=== PATIENT | male | born 1995 | race Caucasian/White ===

== ENCOUNTER 2022-06-27 20:47 | Emergency (ER) | payer BC ==
[2022-06-27 20:53] VITALS: BP 142/86; PULSE 92; RESP 20; TEMP 97.9
[2022-06-27] MEDS ORDERED: KETOROLAC 15 MG/ML 1 ML VIAL IM STA (23:09)
[2022-06-27] MEDS ORDERED: LIDOCAINE 5% PATCH TOPICAL STA (23:09)
[2022-06-27] MEDS ORDERED: methocarbamoL 500 MG TAB PO STA (23:09)
--- NOTE | 2022-06-27 23:47 | XR ---
EXAMINATION TYPE: XR lumbar spine 2 or 3V DATE OF EXAM: 06/27/2022 CLINICAL HISTORY: Acute on chronic pain. TECHNIQUE: Frontal and lateral images of the lumbar spine are obtained. COMPARISON: None FINDINGS: There are 5 lumbar type vertebral bodies identified. The lumbar spine shows satisfactory alignment without evidence of acute fracture or dislocation. Vertebral body heights and disk space he ights are within normal limits. Tiny bony projection anterior inferior L5 vertebral level could refle ct limbus vertebra. The overlying soft tissue appears unremarkable. IMPRESSION: As above.
[2022-06-28] MEDS ORDERED: methylPREDNISolone SOD SUCCI 125 MG/2 ML VIAL IM ONE (00:04)
--- NOTE | 2022-06-28 00:04 | ED ---
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 States he is having pain in the lower back. Occasionally radiates into his right buttock. Also complains of some numbness along the lower aspect of his spine. Denies any urinary or bowel incontinence. Denies any saddle anesthesias. Denies any paralysis of his legs. Is able to ambulate, and states it hurts worse when laying down flat. Improves and standing up. Worse when bending forward. Is seeing a youth care specialist or [facility]. Does not see him until next week Which is why presents tonight for evaluation. States the pain got worse 2 or 3 days ago. No known provocative factor. Does not like to take medications for pain but has been using Tylenol and Motrin with minimal improvement. Presents for further evaluation at this time. No sensory deficits. No weakness. No new injury. - Related Data Previous Rx's Medication Instructions Recorded Lidocaine 5% Patch [Lidoderm 5% 1 patch TOPICAL DAILY PRN 14 Days 06/28/22 Patch] #14 patch methocarbamoL [Robaxin-750] 750 mg PO BID PRN 7 Days #14 tab 06/28/22 Allergies Allergy/AdvReac Type Severity Reaction Status Date / Time amoxicillin Allergy Unknown Verified 06/27/22 20:53 Childhood Penicillins Allergy Unknown Verified 06/27/22 20:53 Childhood Review of Systems ROS Statement: Those systems with pertinent positive or pertinent negative responses have been documented in the HPI. Review of Systems: CONST: Denies fever EYES: Denies blurry vision ENT: Denies nasal congestion C/V: Denies Chest pain RESP: Denies shortness of breath GI: Denies abdominal pain : Denies dysuria SKIN: Denies rash. MSK: Endorses spine pain NEURO: Denies headache ROS Other: All systems not noted in ROS Statement are negative. Past Medical History Additional Past Medical History / Comment(s): back pain History of Any Multi-Drug Resistant Organisms: None Reported Past Surgical History: Hernia Repair, Orthopedic Surgery Additional Past Surgical History / Comment(s): rt knee Past Psychological History: No Psychological Hx Reported Smoking Status: Never smoker Past Alcohol Use History: None Reported Past Drug Use History: None Reported General Exam - General Exam Comments Initial Comments: General: Appears in mild distress secondary to back pain. HEAD: Normal with no signs of head trauma. EYES: EOMI ENT: Hearing grossly intact RESPIRATORY: No respiratory distress C/V: Regular rate and rhythm. S1 and S2 auscultated, peripheral pulses 2+ and intact throughout. ABD: Nondistended EXT: Normal range of motion, no obvious deformity. Neurovascular intact throughout. No midline cervical or thoracic spine tenderness to palpation. L5 tenderness to palpation in the midline. States this is chronic. Pelvis stable. SKIN: No rashes or lesions observed on exposed skin. NEURO: Alert and oriented x 4. Cranial nerves II-XII intact. No focal sensory or strength deficits. Ambulates without difficulty. Negative saddle anesthesia Limitations: no limitations Course Vital Signs 06/27/22 20:49 Temperature 97.9 F Pulse Rate 92 Respiratory 20 Rate Blood Pressure 142/86 O2 Sat by Pulse 96 Oximetry Medical Decision Making - Medical Decision Making Was pt. sent in by a medical professional or institution (, PA, [employer], urgent care, hospital, or fpc...) When possible be specific @ -No Did you speak to anyone other than the patient for history (EMS, parent, family, police, friend...)? What history was obtained from this source @ -No Did you review nursing and triage notes (agree or disagree)? Why? @ -I reviewed and agree with nursing and triage notes Were old charts reviewed (outside hosp., previous admission, EMS record, old EKG, old radiological studies, urgent care reports/EKG's, fpc records)? Report findings @ -No old charts were reviewed Differential Diagnosis (chest pain, altered mental status, abdominal pain women, abdominal pain men, vaginal bleeding, weakness, fever, dyspnea, syncope, headache, dizziness, GI bleed, back pain, seizure, CVA, palpatations, mental health, musculoskeletal)? @ -Muscle strain, muscle strain, chronic back pain, cauda equina syndrome. This list is not all-inclusive. EKG interpreted by me (3pts min.). @ -None done X-rays interpreted by me (1pt min.). @ -Spine x-ray reveals no obvious acute injury. Does appear to have a bony projection near the L5 vertebral body which based on the patient's description is chronic for him. This is the source of his pain that he is being evaluated for. No prior imaging for comparison. CT interpreted by me (1pt min.). @ -None done U/S interpreted by me (1pt. min.). @ -None done What testing was considered but not performed or refused? (CT, X-rays, U/S, labs)? Why? @ -None What meds were considered but not given or refused? Why? @ -None Did you discuss the management of the patient with other professionals (professionals i.e. , PA, [employer], lab, RT, psych nurse, social service liaison, front office agent, teacher, commanding officer homicide squad, immigration case worker)? Give summary @ -No Was smoking cessation discussed for >3mins.? @ -No Was critical care preformed (if so, how long)? @ -No Were there social determinants of health that impacted care today? How? (Homelessness, low income, unemployed, alcoholism, drug addiction, transportation, low edu. Level, literacy, decrease access to med. care, senior care, rehab)? @ -No Was there de-escalation of care discussed even if they declined (Discuss DNR or withdrawal of care, Hospice)? DNR status @ -No What co-morbidities impacted this encounter? (DM, HTN, Smoking, COPD, CAD, Cancer, CVA, ARF, Chemo, Hep., AIDS, mental health diagnosis, sleep apnea, morbid obesity)? 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 Hospital course, mention meds given and route, prescriptions, significant lab abnormalities, going to OR and other pertinent info. @ -Based on the patient's presentation and physical exam I'm concerned for likely acute exacerbation of his chronic pain. No new trauma. No concern for cauda equina syndrome as he has no red flag symptoms. We will obtain a lumbar spine x-ray as well as symptomatic pretreated the patient with a lidocaine patch, muscle relaxer, steroid injection, Toradol injection. He was in agreement this plan. Vital signs within acceptable limits. X-ray shows the known chip deformity of the L5 vertebral body. No acute findings. Discussed results of the patient. He'll be discharged home with strict return precautions. He was in agreement this plan. Instructed to follow-up with his specialist next week. Educated him on the signs of cauda equina syndrome and urgency to return to emergency Department if this does occur. I will provide the patient with a prescription for lidocaine patch, Robaxin. I instructed the patient to follow up with their PCP in the next 1-3 days. I explained that the patient should return to the emergency department if they experience any worsening symptoms. Strict return precautions were discussed with the patient. The patient expressed understanding of these instructions. I answered all questions that the patient had. The patient was discharged home in good condition with their prescriptions and follow up information. Undiagnosed new problem with uncertain prognosis? @ -No Drug Therapy requiring intensive monitoring for toxicity (Heparin, Nitro, Insulin, Cardizem)? @ -No Were any procedures done? @ -No Diagnosis/symptom? @ -Lumbar pain, L5 vertebral body chip deformity Acute, or Chronic, or Acute on Chronic? @ -Acute on chronic chronic Uncomplicated (without systemic symptoms) or Complicated (systemic symptoms)? @ -Uncomplicated Side effects of treatment? @ -No Exacerbation, Progression, or Severe Exacerbation? @ -No Poses a threat to life or bodily function? How? (Chest pain, [place], [place], pneumonia, PE, COPD, DKA, ARF, appy, cholecystitis, CVA, Diverticulitis, Homicidal, Suicidal, threat to staff... and all critical care pts) @ -No Disposition Clinical Impression: Chronic lumbar pain Disposition: HOME SELF-CARE Condition: Good Instructions (If sedation given, give patient instructions): Acute Low Back Pain (ED) Prescriptions: Lidocaine 5% Patch [Lidoderm 5% Patch] 1 patch TOPICAL DAILY PRN 14 Days #14 patch PRN Reason: Pain methocarbamoL [Robaxin-750] 750 mg PO BID PRN 7 Days #14 tab PRN Reason: Pain Is patient prescribed a controlled substance at d/c from ED?: No Referrals: Katharine Cross MD [Primary Care Provider] - 1-2 days Time of Disposition: 00:01
[2022-06-28] MEDS ORDERED: DEXAMETHASONE SOD PHOSPHATE 10 MG/ML 1 ML VIAL IM STA (00:05)
== END 2022-06-28 00:16 | disposition home or self-care (01) ==
LOC: EC 20:47
DX: G89.29 Other chronic pain (principal); M54.50 Low back pain, unspecified; Z88.0 Allergy status to penicillin
CPT/HCPCS: 96372 ×4; 99283 ×2; 72100; J1100; J1885